=== PATIENT | female | born 2000 | race Hispanic/Latino ===

== ENCOUNTER 2020-12-09 21:41 | Emergency (ER) | payer SELFPAY ==
[2020-12-09 22:45] LABS: Urine Blood 3+ (Negative); Urine Glucose Negative (Negative); Urine Protein 2+ (Negative); Urine Specific Gravity >=1.030 (1.005-1.030)
[2020-12-09 22:57] LABS: Urine Specific Gravity/Preg >1.030 (1.005-1.030)
[2020-12-09 23:08] LABS: Absolute Lymphocytes (CBC) 3.1 K/uL (0.7-4.9); Hematocrit 41.4 % (36.0-45.0); Lymphocytes % 29.8 % (15.3-44.8); MPV 9.4 fL (7.6-11.3); RBC Red Blood Cell Count 4.69 M/uL (3.86-4.86)
[2020-12-09 23:26] LABS: ALT/SGPT 31 U/L (12-78); AST/SGOT 18 U/L (15-37); Albumin 4.1 g/dL (3.4-5.0); Alkaline Phosphatase 127 U/L (45-117); BUN Blood Urea Nitrogen 12 mg/dL (7-18); Bicarbonate 25 mmol/L (21-32); Bilirubin Direct 0.1 mg/dL (0-0.2); Bilirubin Total 0.5 mg/dL (0.2-1.0); Glucose Level 79 mg/dL (74-106); Potassium 3.7 mmol/L (3.5-5.1); Protein, Total 7.9 g/dL (6.4-8.2); Sodium Level 140 mmol/L (136-145)
--- NOTE | 2020-12-10 01:04 | EDPHYS ---
Physician Documentation [facility] Name: Jina Ocasio Age: 20 yrs Sex: Female : 2000 Arrival Date: 12/09/2020 Time: 21:48 Bed 17 Private MD: ED Physician Minh Loyola HPI: 12/09 23:53 This 20 yrs old Female presents to ER via Ambulatory with complaints of mh7 Vaginal Bleeding, Vaginal Pain. 23:53 The patient presents with vaginal bleeding that is moderate, with no clots, Abdominal mh7 Pain. Onset: The symptoms/episode began/occurred 4 day(s) ago, Intermittent for 2 months. Modifying factors: The symptoms are alleviated by nothing, the symptoms are aggravated by sexual intercourse. 23:55 Associated signs and symptoms: Pertinent positives: dyspareunia, vaginal bleeding, mh7 Abdominal Pain, Pertinent negatives: constipation, cramping, diarrhea, dysuria, fever, hematuria, nausea, urinary frequency, vaginal discharge, vomiting. Severity of symptoms: At their worst the symptoms were moderate, 4 day(s) ago, in the emergency department the symptoms have improved, moderately. The patient is sexually active. The patient's method of control includes nothing. 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 Flu vaccine is not up to date. - Social history:: Smoking status: Patient denies any tobacco usage or history of. ROS: 23:55 Constitutional: Negative for fever, chills, and weight loss, Eyes: Negative for injury, mh7 pain, redness, and discharge, ENT: Negative for injury, pain, and discharge, Neck: Negative for injury, pain, and swelling, Cardiovascular: Negative for chest pain, palpitations, and edema, Respiratory: Negative for shortness of breath, cough, wheezing, and pleuritic chest pain, Back: Negative for injury and pain, MS/Extremity: Negative for injury and deformity, Skin: Negative for injury, rash, and discoloration, Neuro: Negative for headache, weakness, numbness, tingling, and seizure, Psych: Negative for depression, anxiety, suicide ideation, homicidal ideation, and hallucinations, Allergy/Immunology: Negative for hives, rash, and allergies, Endocrine: Negative for neck swelling, polydipsia, polyuria, polyphagia, and marked weight changes, Hematologic/Lymphatic: Negative for swollen nodes, abnormal bleeding, and unusual bruising. Exam: 23:55 Constitutional: This is a well developed, well nourished patient who is awake, alert, mh7 and in no acute distress. Head/Face: Normocephalic, atraumatic. Eyes: Pupils equal round and reactive to light, extra-ocular motions intact. Lids and lashes normal. Conjunctiva and sclera are non-icteric and not injected. Cornea within normal limits. Periorbital areas with no swelling, redness, or edema. Neck: Trachea midline, no thyromegaly or masses palpated, and no cervical lymphadenopathy. Supple, full range of motion without nuchal rigidity, or vertebral point tenderness. No Meningismus. Chest/axilla: Normal chest wall appearance and motion. Nontender with no deformity. No lesions are appreciated. Cardiovascular: Regular rate and rhythm with a normal S1 and S2. No gallops, murmurs, or rubs. Normal PMI, no JVD. No pulse deficits. Respiratory: Lungs have equal breath sounds bilaterally, clear to auscultation and percussion. No rales, rhonchi or wheezes noted. No increased work of breathing, no retractions or nasal flaring. 23:55 Back: No spinal tenderness. No costovertebral tenderness. Full range of motion. Skin: Warm, dry with normal turgor. Normal color with no rashes, no lesions, and no evidence of cellulitis. MS/ Extremity: Pulses equal, no cyanosis. Neurovascular intact. Full, normal range of motion. Neuro: Awake and alert, GCS 15, oriented to person, place, time, and situation. Cranial nerves II-XII grossly intact. Motor strength 5/5 in all extremities. Sensory grossly intact. Cerebellar exam normal. Normal gait. Psych: Awake, alert, with orientation to person, place and time. Behavior, mood, and affect are within normal limits. 23:55 Abdomen/GI: Inspection: abdomen appears normal, Bowel sounds: normal, in all quadrants, Palpation: moderate abdominal tenderness, in the left upper quadrant and left lower quadrant, mass, is not appreciated, rebound tenderness, is not appreciated, voluntary guarding, is not appreciated, involuntary guarding, is not appreciated, no appreciated organomegaly, Rectal exam: the exam is deferred, because of patient request, Indicators: McBurney's point is not tender, Rodriguez's sign is negative, Rovsing's sign is negative, Obturator sign is negative, Psoas sign is negative, Liver: no appreciated palpable abnormalities, Hernia: not appreciated. 23:55 : CVA tenderness, Pelvic Exam: The exam is refused by the patient/guardian. The mh7 risks and consequences are understood by the patient. Vital Signs: 21:59 BP 141 / 71; Pulse 75; Resp 16; Temp 97.5(TE); Pulse Ox 100% ; Weight 86.18 kg (R); ca1 Height 4 ft. 11 in. (149.86 cm) (R); Pain 3/10; 12/10 00:00 BP 126 / 85; Pulse 60; Resp 19; Pulse Ox 98% ; rr5 01:11 BP 112 / 66; Pulse 58; Resp 16 S; Temp 97.6(O); Pulse Ox 100% on R/A; bb 12/09 21:59 Body Mass Index 38.37 (86.18 kg, 149.86 cm) ca1 MDM: 12/09 23:55 Differential diagnosis: dysmenorrhea, ectopic , endometriosis, mh7 menometrorrhagia, menorrhea, postcoital bleeding, urinary tract infection. Data reviewed: vital signs, nurses notes, lab test result(s), CBC, electrolytes, urinalysis, UPT: negative radiologic studies, CT scan. Data interpreted: Pulse oximetry: on room air is 100 %. Interpretation: normal. Counseling: I had a detailed discussion with the patient and/or guardian regarding: the historical points, exam findings, and any diagnostic results supporting the discharge/admit diagnosis, the presence of at least one elevated blood pressure reading (>120/80) during this emergency department visit, lab results, radiology results, the need for outpatient follow up, an OB/Gyne specialist, to return to the emergency department if symptoms worsen or persist or if there are any questions or concerns that arise at home. Response to treatment: the patient's symptoms have markedly improved after treatment. 12/10 01:03 Patient medically screened. mh7 12/09 22:45 Order name: Urine Dipstick-Ancillary; Complete Time: 00:38 EDMS 12/09 22:45 Order name: Abo/rh Typing; Complete Time: 00:38 rr5 12/09 22:45 Order name: Basic Metabolic Panel; Complete Time: 00:38 rr5 12/09 22:45 Order name: CBC with Diff; Complete Time: 00:38 rr5 12/09 22:45 Order name: LFT's; Complete Time: 00:38 rr5 12/09 22:47 Order name: Urine --Ancillary (enter results) tt3 12/09 22:45 Order name: IV Saline Lock; Complete Time: 22:58 rr5 12/09 22:45 Order name: Labs collected and sent; Complete Time: 22:58 rr5 12/09 22:45 Order name: NPO; Complete Time: 22:58 rr5 12/09 22:45 Order name: Urine Dipstick-Ancillary (obtain specimen); Complete Time: 22:58 rr5 12/09 22:45 Order name: Urine Test (obtain specimen); Complete Time: 22:45 rr5 12/09 22:45 Order name: CT Abd/Pelvis - IV Contrast Only rr 12/09 22:47 Order name: Urine --Ancillary; Complete Time: 00:38 EDMS 12/10 00:21 Order name: CREATININE WHOLE BLOOD; Complete Time: 00:38 EDMS Administered Medications: No medications were administered Disposition: 12/10/20 01:03 Discharged to Home. Impression: Abdominal Pain, Postcoital Vaginal Bleeding. - Condition is Stable. - Discharge Instructions: Abdominal Pain, Adult, [id number], Dysmenorrhea, [id number]. - Medication Reconciliation Form, Thank You Letter, Antibiotic Education, Prescription Opioid Use form. - Follow up: Private Physician; When: 1 - 2 days; Reason: Worsening of condition, Recheck today's complaints, Continuance of care, Re-evaluation by your physician. Follow up: Gloria Boo MD; When: 2 - 3 days; Reason: Worsening of condition, Recheck today's complaints. - Problem is an ongoing problem. - Symptoms have improved. Signatures: Dispatcher [employer] EDLexie Wagner RN RN bb Milton Mendes RN RN rr5 Esme Rowe RN RN ca1 Minh Loyola MD MD 7 Corrections: (The following items were deleted from the chart) 01:12 01:03 12/10/2020 01:03 Discharged to Home. Impression: Abdominal Pain; Postcoital bb Vaginal Bleeding. Condition is Stable. Forms are Medication Reconciliation Form, Thank You Letter, Antibiotic Education, Prescription Opioid Use. Follow up: Private Physician; When: 1 - 2 days; Reason: Worsening of condition, Recheck today's complaints, Continuance of care, Re-evaluation by your physician. Follow up: Gloria Boo; When: 2 - 3 days; Reason: Worsening of condition, Recheck today's complaints. Problem is an ongoing problem. Symptoms have improved. 7
--- NOTE | 2020-12-10 01:04 | ER ---
Nurse's Notes [facility] Name: Jina Ocasio Age: 20 yrs Sex: Female : 2000 Arrival Date: 12/09/2020 Time: 21:48 Bed 17 Private MD: Diagnosis: Abdominal Pain;Postcoital Vaginal Bleeding Presentation: 12/09 21:59 Chief complaint: Patient states: Vaginal bleeding during and after intercourse x 4 ca1 months. Bleeding has been worse recently. Been bleeding for 2 days now. Coronavirus screen: Client denies travel out of the [place] in the last 14 days. At this time, the client does not indicate any symptoms associated with coronavirus-19. Ebola Screen: Patient negative for fever greater than or equal to 101.5 degrees Fahrenheit, and additional compatible Ebola Virus Disease symptoms Patient denies exposure to infectious person. Patient denies travel to an Ebola-affected area in the 21 days before illness onset. No symptoms or risks identified at this time. Initial Sepsis Screen: Does the patient meet any 2 criteria? No. Patient's initial sepsis screen is negative. Does the patient have a suspected source of infection? No. Patient's initial sepsis screen is negative. Risk Assessment: Do you want to hurt yourself or someone else? Patient reports no desire to harm self or others. Onset of symptoms was December 09, 2020. 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 Flu vaccine is not up to date. - Social history:: Smoking status: Patient denies any tobacco usage or history of. Screenin:43 Abuse screen: Denies threats or abuse. Denies injuries from another. Nutritional rr5 screening: No deficits noted. Tuberculosis screening: No symptoms or risk factors identified. Fall Risk IV access (20 points). Total Mejía Fall Scale indicates No Risk (0-24 pts). Assessment: 22:13 General: Appears in no apparent distress. comfortable, Behavior is calm, cooperative, rr5 appropriate for age. Pain: Complains of pain in pelvis. Neuro: Level of Consciousness is awake, alert, obeys commands, Oriented to person, place, time. Cardiovascular: Capillary refill < 3 seconds Patient's skin is warm and dry. Respiratory: Airway is patent Respiratory effort is even, unlabored, Respiratory pattern is regular, symmetrical. : Reports vaginal bleeding that is bright red, with clots, moderate flow. 23:30 Reassessment: Patient appears in no apparent distress at this time. No changes from rr5 previously documented assessment. Patient and/or family updated on plan of care and expected duration. Pain level reassessed. 12/10 00:30 Reassessment: Patient appears in no apparent distress at this time. Patient is alert, rr5 oriented x 3, equal unlabored respirations, skin warm/dry/pink. awaiting for results no complaints made. 01:10 Reassessment: Patient is alert, oriented x 3, equal unlabored respirations, skin bb warm/dry/pink. pt verbalized understanding of and agrees to plan of care discharge instructions given pt ambulated with steady gait to exit accompanied by family. Vital Signs: 12/09 21:59 BP 141 / 71; Pulse 75; Resp 16; Temp 97.5(TE); Pulse Ox 100% ; Weight 86.18 kg (R); ca1 Height 4 ft. 11 in. (149.86 cm) (R); Pain 3/10; 12/10 00:00 BP 126 / 85; Pulse 60; Resp 19; Pulse Ox 98% ; rr5 01:11 BP 112 / 66; Pulse 58; Resp 16 S; Temp 97.6(O); Pulse Ox 100% on R/A; bb 12/09 21:59 Body Mass Index 38.37 (86.18 kg, 149.86 cm) ca1 ED Course: 12/09 21:48 Patient arrived in ED. cf2 22:01 Triage completed. ca1 22:02 Arm band placed on right wrist. ca1 22:11 Milton Mendes, PILAR is Primary Nurse. rr5 22:12 Minh Loyola MD is Attending Physician. mh7 22:58 Inserted saline lock: 20 gauge in right antecubital area, using aseptic technique. rr5 Blood collected. 23:31 CT Abd/Pelvis - IV Contrast Only In Process Unspecified. EDMS 12/10 01:02 Gloria Boo MD is Referral Physician. Julee 01:11 Patient has correct armband on for positive identification. bb 01:11 No provider procedures requiring assistance completed. IV discontinued, intact, bb bleeding controlled, No redness/swelling at site. Pressure dressing applied. Administered Medications: No medications were administered Outcome: 01:03 Discharge ordered by . rosalinda 01:12 Discharged to home ambulatory, with family. bb 01:12 Condition: stable 01:12 Discharge instructions given to patient, Instructed on discharge instructions, follow up and referral plans. Demonstrated understanding of instructions, follow-up care. 01:12 Patient left the ED. bb Signatures: Dispatcher [employer] EDPR Lexie Lewis RN RN bb Milton Mendes RN RN rr5 Esme Rowe RN RN [facility] Elvi Mcleod 2 Minh Loyola MD MD 7
[2020-12-10 01:28] VITALS: O2SAT 100
[2020-12-10 01:30] VITALS: BP 112/66; TEMP 97.6
--- NOTE | 2020-12-11 21:12 | RAD REPORT ---
EXAM DESCRIPTION: CT - Abdomen Pelvis W Contrast - 12/10/2020 6:24 am CLINICAL HISTORY: The patient is 20 years old and is Female; VAGINAL BLEEDING TECHNIQUE: Axial computed tomography images of the abdomen and pelvis with intravenous contrast. S agittal and coronal reformatted images were created and reviewed. This CT exam was performed using one or more of the following dose reduction techniques: automated exposure control, adjustment of t he mA and/or kV according to patient size, and/or use of iterative reconstruction technique. COMPARISON: No relevant prior studies available. FINDINGS: Lung bases: Unremarkable. No mass. No consolidation. ABDOMEN: Liver: Unremarkable. No mass. Gallbladder and bile ducts: Unremarkable. No calcified stones. No ductal dilation. Pancreas: Unremarkable. No mass. No ductal dilation. Spleen: Unremarkable. No splenomegaly. Adrenals: Unremarkable. No mass. Kidneys and ureters: Unremarkable. No solid mass. No hydronephrosis. Stomach and bowel: Scattered colonic diverticula. No obstruction. No mucosal thickening. PELVIS: Appendix: No findings to suggest acute appendicitis. Bladder: Unremarkable. No mass. Reproductive: Unremarkable as visualized. ABDOMEN and PELVIS: Intraperitoneal space: Unremarkable. No free air. No significant fluid collection. Bones/joints: No acute fracture. No dislocation. Soft tissues: Unremarkable. Vasculature: Unremarkable. No abdominal aortic aneurysm. Lymph nodes: Unremarkable. No enlarged lymph nodes. IMPRESSION: No acute findings in the abdomen or pelvis. Electronically signed by: John Joshua MD 12/10/2020 12:01 AM CDT Due to temporary technical issues with the PACS/Fluency reporting system, reports are being signed by the in house radiologists without review as a courtesy to insure prompt reporting. The interpreting radiologist is fully responsible for the content of the report.
== END 2020-12-10 01:12 | disposition home or self-care (01) ==
LOC: ER 21:41
DX: N93.0 Postcoital and contact bleeding (principal)
CPT/HCPCS: 36415; 74177; 80048; 80076; 81003; 81025; 82565; 85025; 86900; 86901; 99283; Q9967